=== PATIENT | male | born 1955 | race Caucasian/White ===

== ENCOUNTER 2018-07-09 10:58 | Emergency (ER) | payer SELFPAY ==
[2018-07-09] MEDS ORDERED: HYDROCODONE/APAP 10/325 TAB ONE (11:26)
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
--- NOTE | 2018-07-09 13:06 | RAD REPORT ---
EXAM DESCRIPTION: USExtsarah Venous Uni Ltd3 12:35 pm CLINICAL HISTORY: Right leg swelling. COMPARISON: 2007 FINDINGS: Right common femoral, superficial femoral, popliteal and right posterior tibial veins are compressible and demonstrate augmentation. Doppler demonstrates good flow. IMPRESSION: No evidence of deep venous thrombosis involving the right lower extremity.
--- NOTE | 2018-07-09 13:08 | RAD REPORT ---
EXAM DESCRIPTION: RAD - Tib Fib Right - 07/09/2018 12:37 pm CLINICAL HISTORY: Right leg pain FINDINGS: Mildly displaced fracture involves the lateral malleolus. Medial clear space is mildly wid ened which may indicate an injury to the deltoid ligament
--- NOTE | 2018-07-09 13:09 | RAD REPORT ---
EXAM DESCRIPTION: RAD - Ankle Right 3 View - 07/09/2018 12:36 pm CLINICAL HISTORY: Right ankle pain FINDINGS: Mildly displaced fracture involves the lateral malleolus. Medial clear space is mildly wid ened which may indicate an injury to the deltoid ligament
--- NOTE | 2018-07-09 13:10 | RAD REPORT ---
EXAM DESCRIPTION: RAD - Foot Right 3 View - 07/09/2018 12:37 pm CLINICAL HISTORY: Right foot pain FINDINGS: Mildly displaced fracture involves the lateral malleolus. Medial clear space is mildly wid ened which may indicate an injury to the deltoid ligament
== END 2018-07-09 12:58 | disposition home or self-care (01) ==
LOC: ER 10:58
PROC: 2W3LX1Z Immobilization of Right Lower Extremity using Splint (ICD-10-PCS; principal; 2018-07-09)
DX: S82.61XA Displaced fracture of lateral malleolus of right fibula, initial encounter for closed fracture (principal); W23.1XXA Caught, crushed, jammed, or pinched between stationary objects, initial encounter; Y93.89 Activity, other specified; Y92.89 Other specified places as the place of occurrence of the external cause; I10 Essential (primary) hypertension; Z72.0 Tobacco use
CPT/HCPCS: 82962; 93971; 99284

== ENCOUNTER 2018-07-15 09:46 | Day surgery (SDC) | payer SELFPAY ==
[2018-07-15 10:03] LABS: Absolute Monocytes 0.7 K/uL (0.1-1.3); Absolute Neutrophil 7.4 K/uL (1.8-8.0); Basophils % 0.5 % (0-1.3); Eosinophils % 1.3 % (0-4.4); Hematocrit 48.3 % (39.6-49.0); Lymphocytes % 19.6 % (15.3-44.8); MPV 7.4 fL (7.6-11.3); Monocytes % 6.4 % (3.3-12.3); RBC Red Blood Cell Count 5.38 M/uL (4.33-5.43)
[2018-07-15] MEDS ORDERED: CEFAZOLIN/SWI 1gm 1 GM/10 ML SYR ONE (10:09)
[2018-07-15] MEDS ORDERED: NA CHLORIDE 0.9% 1,000 ML ONE ×2 (10:09→12:56)
[2018-07-15 10:22] LABS: Potassium 4.1 mmol/L (3.5-5.1)
[2018-07-15] MEDS ORDERED: PROPOFOL 200 MG/20 ML VIAL IV ONE (11:37)
[2018-07-15] MEDS ORDERED: LIDOCAINE 1% MPF 5 ML VIAL ONE ×4 (11:38→11:39)
[2018-07-15] MEDS ORDERED: MIDAZOLAM HCL 2 MG/2 ML INJ ONE (11:38)
[2018-07-15] MEDS ORDERED: FENTANYL CITR 100 MCG/2 ML ONE ×3 (11:38→12:41)
[2018-07-15] MEDS ORDERED: NS 0.9% VIAL 10 ML ONE (12:24)
[2018-07-15] MEDS ORDERED: EPHEDRINE SULF 50 MG/10 ML SYR ONE (12:24)
[2018-07-15] MEDS ORDERED: KETOROLAC 30 MG/ML INJ ONE (12:40)
--- NOTE | 2018-07-15 12:49 | EKG ---
Test Date: 2018-07-15 Test Time: 09:40:27 Disability Case Manager: ZEB MEASUREMENT RESULTS: Intervals: Rate: 69 NV: 194 QRSD: 90 QT: 382 QTc: 409 [place]: P: 49 NV: 194 QRS: 14 T: 33 INTERPRETIVE STATEMENTS: Normal sinus rhythm Normal ECG Compared to ECG 09/05/2007 06:12:37 No significant changes Electronically Signed On 07-15-18 12:48:03 CDT by Rudolph Waterman
--- NOTE | 2018-07-15 12:55 | RAD REPORT ---
EXAM DESCRIPTION: RAD - Ankle Right 2 View - 07/15/2018 12:48 pm CLINICAL HISTORY: Fibular fracture FINDINGS: Sideplate and screws affix a fibular fracture Three fluoroscopic spot images obtained. Fluoroscopy time 0.2 minutes Procedure performed by Dr. De León
--- NOTE | 2018-07-15 12:57 | P.BOP ---
Preoperative diagnosis: right lateral malleolus fx Postoperative diagnosis: same Primary procedure: orif right lat malleolus Estimated blood loss: 20 ccs Anesthesia: General Complications: None Transferred to: Recovery Room Condition: Good
[2018-07-15] MEDS: HYDROMORPHONE HCL 2 MG/ML inj ONE ×4 (13:05→13:20)
[2018-07-15] MEDS: HYDROMORPHONE HCL 1 MG/ML INJ ONE ×2 (13:25→13:30)
[2018-07-15] MEDS: FENTANYL CITR 100 MCG/2 ML ONE ×2 (13:44→13:50)
[2018-07-15] MEDS ORDERED: HYDROCODONE/APAP 5/325 MG TAB ONE (14:44)
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
== END 2018-07-15 15:10 | disposition home or self-care (01) ==
LOC: OR 09:46
PROVIDERS: ATTEND Orthopaedic Surgery
PROC: 0QSJ04Z Reposition Right Fibula with Internal Fixation Device, Open Approach (ICD-10-PCS; principal; 2018-07-15 13:00)
DX: S82.61XA Displaced fracture of lateral malleolus of right fibula, initial encounter for closed fracture (principal); X58.XXXA Exposure to other specified factors, initial encounter; E11.9 Type 2 diabetes mellitus without complications; I10 Essential (primary) hypertension
CPT/HCPCS: 36415; 80048; 82962; 85025; 93005; J0690; J1170; J2250; J2704; J3010; J7030